=== PATIENT | female | born 1970 | race Hispanic/Latino ===

== ENCOUNTER 2025-04-29 21:40 | Emergency (ER) | payer OTHER ==
[~2025-04-29] VITALS: Ht 154.9 cm; Wt 85.9 kg
[2025-04-29 22:00] VITALS: BP 147/75; PULSE 74; RESP 16; TEMP 98.1
[2025-04-29] MEDS ORDERED: NS 1000ML 1,000 ML ONE (22:02)
[2025-04-29 22:11] LABS: BASOPHIL # 0.0 10^3/uL (0.0-0.1); BASOPHIL % 0.6 % (0.1-1.2); EOSINOPHIL # 0.2 10^3/uL (0.0-0.2); EOSINOPHIL % 2.9 % (0.0-5.0); HEMATOCRIT(ML) 36.1 % (36.0-46.0); IG % 0.40 % (0.00-0.50); LYMPHOCYTES # 1.40 10^3/uL1 (1.0-4.8); LYMPHOCYTES % 20.4 % (24.0-44.0); MEAN CORP HGB 29.0 pg (26-34); MEAN CORP HGB CONCENTRATION 33.0 g/dL (33-36.5); MEAN CORP VOLUME 87.8 fL (78-100); MONOCYTES # 0.4 10^3/uL (0.3-0.8); MONOCYTES % 6.1 % (5.0-12.0); NEUTROPHIL # 4.8 10^3/uL (1.8-7.7); NEUTROPHILS % 69.6 % (41.0-85.0); RED BLOOD CELL 4.11 10^6/uL (4.00-5.20); RED CELL DISTRIBUTION WIDTH 13.1 % (11.5-14.5); WHITE BLOOD CELL 6.9 10^3/uL (4.5-11.0)
[2025-04-29] MEDS ORDERED: MECLIZINE HCL ONE (22:12)
[2025-04-29] MEDS ORDERED: ZOFRAN ONE (22:12)
[2025-04-29] MEDS ORDERED: HUMULIN R ONE (22:13)
[2025-04-29 22:18] LABS: LEUKOCYTE ESTERASE ,URINE NEGATIVE (NEGATIVE); NITRATE,URINE NEGATIVE (NEGATIVE)
[2025-04-29] MEDS: ZOFRAN IV STA (22:18)
[2025-04-29] MEDS: MECLIZINE HCL PO STA (22:18)
[2025-04-29 22:19] LABS: APPEARANCE,URINE CLEAR; UA COLOR YELLOW
[2025-04-29] MEDS: HUMULIN R IV STA (22:19)
[2025-04-29] MEDS: NS 1000ML 1,000 ML IV STA (22:19)
[2025-04-29 22:24] LABS: YEAST,URINE FEW (NONE SEEN)
[2025-04-29 22:35] LABS: ALANINE AMINOTRANSFERASE(ML) 19.0 U/L (12-78); ALBUMIN(ML) 3.1 g/dL (3.4-5.0); CREATININE SERUM 2.06 mg/dL (0.59-1.40); EST GFR, NON-AA 25.1 (>/=60); TROPONIN I HIGH SENSITIVITY 11.0 ng/L (0-50)
[2025-04-29] MEDS: HUMULIN R SQ ONE (22:36)
[2025-04-29] MEDS ORDERED: MECL-213 PO (23:15)
[2025-04-29] MEDS ORDERED: ONDA-226 PO (23:15)
[2025-04-29 23:16] VITALS: BP 138/80; PULSE 73; RESP 16; TEMP 98.1; O2SAT 96
== END 2025-04-29 23:20 | disposition home or self-care (01) ==
LOC: ER 21:40
DX: E11.65 Type 2 diabetes mellitus with hyperglycemia (principal); R42 Dizziness and giddiness; E78.00 Pure hypercholesterolemia, unspecified; I10 Essential (primary) hypertension; I25.10 Atherosclerotic heart disease of native coronary artery without angina pectoris
CPT/HCPCS: 99285; 96374; 71045; 96361; 96375; 87086; 80053; 85025; 82948 ×2; 36415; 84484; 83605; 81001; 82010; 83690; 86140; 93005; J7030; J8597; J1815; J2405